=== PATIENT | female | born 1990 | race African-American/Black ===

== ENCOUNTER 2021-09-21 14:43 | Emergency (ER) | payer OTHER ==
[~2021-09-21] VITALS: Ht 149.9 cm; Wt 88.0 kg
[2021-09-21] MEDS ORDERED: PEPCID AC20 MG PO (17:41)
[2021-09-21] MEDS ORDERED: ZOFRAN8 MG PO (17:41)
== END 2021-09-21 18:16 | disposition home or self-care (01) ==
LOC: ER 14:43
DX: A05.9 Bacterial foodborne intoxication, unspecified (principal); R11.2 Nausea with vomiting, unspecified; Z88.0 Allergy status to penicillin